=== PATIENT | female | born 1975 | race Caucasian/White ===

== ENCOUNTER 2024-03-24 08:53 | Outpatient (CLI) | payer BC, SELFPAY ==
--- NOTE | 2024-03-27 16:09 | WPDHOLTEREM ---
Holter/Event Monitor Holter/Event Monitor Date of procedure: 03/24/24 Holter/Event Procedure: 48 Hr Holter Monitor Indications: Palpitations Conclusion: 1. 48 hour holter monitor on 03/24/24. 2. Underlying rhythm is sinus rhythm. HR range 50-136 bpm; average HR 80 bpm. 3. There are 34 premature supraventricular complexes. No supraventricular tachycardia. 4. There are 16 premature ventricular complexes. No ventricular tachycardia. 5. No sinoatrial or atrioventricular blocks. No significant pauses greater than 2 seconds. 6. No symptoms available for correlation.
== END 2024-03-24 08:54 | disposition home or self-care (01) ==
PROVIDERS: PCP Clinical Nurse Specialist
DX: R00.1 Bradycardia, unspecified (principal)
CPT/HCPCS: 93225; 93226

== ENCOUNTER 2024-03-26 10:56 | Outpatient (CLI) | payer BC, SELFPAY ==
[2024-03-26 12:01] LABS: Hematocrit 37.3 % (37.0-47.0); Hemoglobin 12.1 g/dL (12.0-15.0); Mean Corpuscular HGB Conc 32.4 g/dl (32-36); Mean Corpuscular Volume 95.6 fl (80-100); Mean Platelet Volume 10.6 fl (7.4-10.4); Platelet Count Result 294 k/mm3 (150-375); Red Cell Distribution Width 12.6 % (11.5-14.5); White Blood Count 6.8 K/mm3 (4.5-10.0)
[2024-03-26 12:14] LABS: Alanine Aminotransferase 11 U/L (6-35); Albumin Level 4.4 g/dL (3.5-5.1); Alkaline Phosphatase 31 U/L (38-126); Anion Gap 5 mmol/L (4-12); Aspartate Amino Transferase 21 U/L (14-36); Bilirubin,Total 0.6 mg/dL (0.2-1.3); Blood Urea Nitrogen 12 mg/dL (7-17); Calcium 8.9 mg/dL (8.4-10.2); Carbon Dioxide 26 mmol/L (22-30); Chloride 108 mmol/L (98-107); Estimated Glomerular Filt Rate > 60; Glucose 86 mg/dL (65-110); Potassium 3.7 mmol/L (3.4-5.0); Sodium 139 mmol/L (137-145)
== END 2024-03-26 10:57 | disposition home or self-care (01) ==
PROVIDERS: PCP Clinical Nurse Specialist
DX: R00.0 Tachycardia, unspecified (principal); R00.2 Palpitations
CPT/HCPCS: 36415; 80053; 84443; 85027

== ENCOUNTER 2024-06-26 08:35 | Emergency (ER) | payer BC, SELFPAY ==
[2024-06-26 08:46] VITALS: BP 101/73; PULSE 88; RESP 16; TEMP 36.6; O2SAT 99
--- NOTE | 2024-06-26 08:59 | ED.SKABFB ---
HPI - Skin/Abscess/Foreign Bdy General Chief complaint: Skin/Abscess/Foreign Body Stated complaint: FACIAL SWELLING/REDNESS Time Seen by Provider: 06/26/24 08:59 Source: patient, RN notes reviewed and old records reviewed Mode of arrival: ambulatory Limitations: no limitations History of Present Illness HPI narrative: 49-year-old female presents to [facility] with complaints of rash to her face and around her right eye and on eyelid, on her arms and hands since working in the yard on Sunday. Patient reports that she has been taking Araceli and has also applied some triamcinolone ointment to her arms and hands. Patient reports that rash is itchy. patient reports no difficulty breathing or swallowing. MD complaint: rash Onset (ago): day(s) (3-4 ays) Location: face, LUE, RUE, L hand and R hand Severity: moderate Quality: pruritic Treatments prior to arrival: OTC topical medication (triaminolone ointment to arms and hands, Araceli) Related Data Allergies Allergy/AdvReac Type Severity Reaction Status Date / Time No Known Allergies Allergy Verified 06/26/24 08:46 Review of Systems Review of Systems: CONSTITUTIONAL: Denies fever, chills, or sweats. CARDIOVASCULAR: Denies chest pain, palpitations, or edema. RESPIRATORY: Denies cough or dyspnea. SKIN: Reports redness with rash to her face and around right eye and on eyelid and to bilateral arms and hands no drainage noted red raised rash which is itchy MUSCULOSKELETAL: Denies joint pain or myalgia. NEUROLOGIC: Denies headache, numbness, or weakness. All systems reviewed & are unremarkable except as noted in HPI and below [facility] Past Medical History Medical History (Updated 06/26/24 @ 09:46 by Christy Gonzales NP) Acute urticaria stress related Surgical History Surgical History (Updated 06/26/24 @ 09:12 by Christy Gonzales NP) History of conization of cervix History of dilatation and curettage x2 Social History Social History (Updated 06/26/24 @ 09:12 by Christy Gonzales NP) Smoking status: Never smoker Alcohol intake: never Substance use type: does not use Living arrangements: with family Gender identity (if verbalized by the patient): Female Comments At time of signature, agree with nursing past medical, surgical, social and family history. There is no relevant family history pertinent to the presenting complaint Exam Narrative: GENERAL: Well-appearing, well-nourished, and in no acute distress. HEAD: Normocephalic, atraumatic. EYES: PERRLA, conjunctivae clear, and EOMI.red rash noted under right eye and on right upper eyelid no acute swelling ENT: Mucous membranes moist. Oropharynx without edema, erythema or lesions. NECK: Supple. No lymphadenopathy CHEST: Clear to auscultation. No respiratory distress.no cough noted SAO2 99% on room air HEART: Regular rate and rhythm. SKIN: Warm, dry.? Patches of erythema and edema to face and around right eye and on right upper eyelid and to bilateral forearms and hands with scattered red raised rash no drainage , is itchy NEURO:? Alert and oriented x3. PSYCH: Normal mood and affect Course Course Emergency Course: Patient is aware of diagnosis, understands and agrees to treatment plan.? Anticipatory guidance given.? Patient agrees to follow-up as directed and is aware of reasons to seek care at the emergency department. Portions of this record may have been created with voice recognition software Level of Care: Express Care Visit Vital Signs Vital signs: Vital Signs Temperature 36.6 C 06/26/24 08:46 Pulse Rate 88 06/26/24 08:46 Respiratory Rate 16 06/26/24 08:46 Blood Pressure 101/73 06/26/24 08:46 Pulse Oximetry 99 06/26/24 08:46 Temperature 36.6 C 06/26/24 08:46 Pulse Rate 88 06/26/24 08:46 Respiratory Rate 16 06/26/24 08:46 Blood Pressure 101/73 06/26/24 08:46 Pulse Oximetry 99 06/26/24 08:46 Reviewed MDM - Skin/Abscess/Fo
[2024-06-26] MEDS: methylPREDNISolone ACETATE 80 MG/ML VIAL IM (09:23)
== END 2024-06-26 09:38 | disposition home or self-care (01) ==
PROVIDERS: Emergency Provider Registered Nurse
DX: L25.9 Unspecified contact dermatitis, unspecified cause (principal); H01.111 Allergic dermatitis of right upper eyelid
CPT/HCPCS: 96372; 99213; G0463; J1010

== ENCOUNTER 2025-04-14 14:17 | Emergency (ER) | payer BC, SELFPAY ==
[2025-04-14 14:31] VITALS: BP 97/70; PULSE 78; RESP 16; TEMP 36.7; O2SAT 98
--- NOTE | 2025-04-14 14:49 | ED_ITS ---
HPI - General Adult General Chief complaint: Eye Problems Stated complaint: Facial swelling Time Seen by Provider: 04/14/25 14:49 Mode of arrival: ambulatory Limitations: no limitations History of Present Illness HPI narrative: 50-year-old female presents with concern for eyelid swelling. She reports symptoms started today and or worse when she woke up. Reports she had trouble opening her left eye because of the swelling. Reports she used a cold washcloth and took fexofenadine. Reports symptoms improved but are not resolved. She denies any drainage, itchiness, pain, vision changes with the eyes. She reports she has had this problem in the past, she has Raynaud swelling parts of her without triggers. Reports occasionally would be 1 side of the upper lip, and I etc.. She denies any current lip swelling tongue swelling, trouble breathing. Denies vomiting, diarrhea, fever. She denies any known triggers for allergies. She does not have primary care. Reports history of getting stress hives in the past MD complaint: Eyelid swelling Related Data Allergies Allergy/AdvReac Type Severity Reaction Status Date / Time No Known Allergies Allergy Verified 06/26/24 08:46 Review of Systems Review of Systems: CONSTITUTIONAL: Denies malaise, chills, sweats, or fever. EYES: Denies visual changes, redness, or discharge. Reports bilateral eyelid swelling or worse on the left ENT: Denies rhinorrhea, congestion RESPIRATORY: Denies cough or dyspnea. GASTROINTESTINAL: Denies nausea, vomiting. SKIN: Denies rash or itching. All systems reviewed & are unremarkable except as noted in HPI and below [facility] Past Medical History Medical History (Updated 04/14/25 @ 14:58 by Julissa Juares NP) Acute urticaria stress related Surgical History Surgical History (Updated 06/26/24 @ 09:12 by Christy Gonzales NP) History of conization of cervix History of dilatation and curettage x2 Social History Social History (Updated 06/26/24 @ 09:12 by Christy Gonzales NP) Smoking status: Never smoker Alcohol intake: never Substance use type: does not use Living arrangements: with family Gender identity (if verbalized by the patient): Female Comments At time of signature, agree with nursing past medical, surgical, social and family history. There is no relevant family history pertinent to the presenting complaint Exam Narrative: GENERAL: Well-appearing, well-nourished, and in no acute distress. HEAD: Normocephalic, atraumatic. EYES: PERRLA, sclera clear, and EOMI. No nystagmus. Upper lower eyelids unremarkable ENT: Nares clear. Mucous membranes moist NECK: Supple. CHEST: No respiratory distress. Speaks in full sentences. HEART: Regular rate and rhythm. SKIN: Warm, dry, no visible rash. NEURO: Alert and oriented x3. PSYCH: Normal mood and affect Course Course Emergency Course: Patient is aware of diagnosis, understands and agrees to treatment plan. Anticipatory guidance given. Patient agrees to follow-up as directed and is aware of reasons to seek care at the emergency department. Portions of this record may have been created with voice recognition software Level of Care: Express Care Visit Vital Signs Vital signs: Vital Signs Temperature 98.1 F 04/14/25 14:31 Pulse Rate 78 04/14/25 14:31 Respiratory Rate 16 04/14/25 14:31 Blood Pressure 97/70 L 04/14/25 14:31 Pulse Oximetry 98 04/14/25 14:31 Temperature 98.1 F 04/14/25 14:31 Pulse Rate 78 04/14/25 14:31 Respiratory Rate 16 04/14/25 14:31 Blood Pressure 97/70 L 04/14/25 14:31 Pulse Oximetry 98 04/14/25 14:31 Reviewed. Medical Decision Making MDM Narrative Medical decision making narrative: No soft palate or uvula edema, no tongue or lip edema or other mucosal involvement, no respiratory compromise, no stridor, no wheezing, no wheezing, no history of syncope, no hypotension, no nausea, vomiting, or diarrhea. Vital Signs Vital Signs: Vital Signs Temperature 98.1 F 04/14/25 14:31 Pulse Rate 78 04/14/25 14:31 Respiratory Rate 16 04/14/25 14:31 Blood Pressure 97/70 L 04/14/25 14:31 Pulse Oximetry 98 04/14/25 14:31 Temperature 98.1 F 04/14/25 14:31 Pulse Rate 78 04/14/25 14:31 Respiratory Rate 16 04/14/25 14:31 Blood Pressure 97/70 L 04/14/25 14:31 Pulse Oximetry 98 04/14/25 14:31 Critical Care Time Critical Care Time Critical Care Time: No Discharge Plan Discharge Clinical Impression: Allergic reaction Patient Disposition: Home Condition: Stable Instructions: General Allergic Reaction (ED) Additional Instructions: You may take 1-2 tabs of Benadryl (diphenhydramine) every 6 hours - this medicine may make you tired, so know how it affects you before you drive, work, make important decisions. You may also take a non-drowsy antihistamine such as Zyrtec or Araceli once daily. Medications that block stomach acid, such as Pepcid, also block histamine and can be helpful; take this once daily. If you have difficulty breathing, wheezing, swollen lips, swollen tongue, nausea, vomiting, diarrhea, pass out, have fever, itchy tongue, give difficulty swallowing please call 911 or go to the emergency room. Having an established primary care provider is essential to your health. Please call [phone] for help finding a primary care provider in your area that accepts your insurance. Patient Language: Turkmen Prescriptions: No Action prednisone 10 mg tablet 10 mg PO DIRECTED Qty: 21 0RF Rx Instructions: see taper instructions prednisone 10 mg 6 tabs daily for day 1,5 tabs daily for day 2, 4 tabs daily day 3, 3 tabs daily day 4, 2 tabs daily day 5, 1 tab daily days 6 famotidine [Pepcid] 20 mg tablet 20 mg PO DAILY Qty: 10 0RF Rx Instructions: daily for 10 days Follow-up/Referrals: PHYSICIAN NOT ON STAFF,NONSTAFF [Primary Care Provider] - Vinayak Lopez MD [Physician] - Time of Disposition: 15:01
== END 2025-04-14 15:07 | disposition home or self-care (01) ==
PROVIDERS: Emergency Provider Nurse Practitioner
DX: T78.40XA Allergy, unspecified, initial encounter (principal)
CPT/HCPCS: 99211; G0463